=== PATIENT | male | born 1980 | race Two or more races ===

== ENCOUNTER 2019-05-14 18:51 | Inpatient (IN) | payer MEDICAID ==
[~2019-05-14] VITALS: Ht 185.4 cm; Wt 156.0 kg
[2019-05-15 02:15] VITALS: BP 137/78
[2019-05-15] MEDS: QUEtiapine FUMARATE 100 MG TABLET PO PRN (08:01)
[2019-05-15] MEDS: LORazepam 2 MG TABLET PO PRN (08:01)
[2019-05-15 16:00] VITALS: BP 125/69
[2019-05-15] MEDS: OLANZapine 10 MG TABLET PO SCH (20:36)
[2019-05-15] MEDS: VALPROIC ACID 250 MG CAPSULE PO SCH (20:36)
[2019-05-16] MEDS: LORazepam 2 MG TABLET PO PRN (08:26)
[2019-05-16] MEDS: VALPROIC ACID 250 MG CAPSULE PO SCH ×2 (08:27→20:24)
[2019-05-16] MEDS: QUEtiapine FUMARATE 100 MG TABLET PO PRN (08:27)
[2019-05-16 09:19] VITALS: BP 131/84
[2019-05-16 17:01] VITALS: BP 118/78
[2019-05-16] MEDS: OLANZapine 10 MG TABLET PO SCH (20:24)
[2019-05-17 05:25] VITALS: BP 124/83
[2019-05-17 08:29] VITALS: BP 131/82
[2019-05-17] MEDS: VALPROIC ACID 250 MG CAPSULE PO SCH ×2 (08:42→20:22)
[2019-05-17] MEDS ORDERED: ALBUTEROL SULFATE HFA 90 MCG/PUFF 8 GM INHALER IH PRN (14:30)
[2019-05-17] MEDS ORDERED: DOCUSATE SODIUM 100 MG CAPSULE PO PRN (14:30)
[2019-05-17] MEDS ORDERED: IBUPROFEN 400 MG TABLET PO PRN (14:30)
[2019-05-17] MEDS ORDERED: LOPERAMIDE HCL 2 MG CAPSULE PO PRN (14:30)
[2019-05-17] MEDS ORDERED: ACETAMINOPHEN 325 MG TABLET PO PRN (14:30)
[2019-05-17] MEDS ORDERED: CloNIDine HCL 0.1 MG TABLET PO PRN (14:30)
[2019-05-17] MEDS ORDERED: MAGNESIUM HYDROXIDE SUSPENSION 30 ML UDCUP PO PRN (14:30)
[2019-05-17] MEDS ORDERED: ONDANSETRON HCL 4 MG TABLET PO PRN (14:30)
[2019-05-17] MEDS ORDERED: PETROLATUM,WHITE 28 GM JELLY TP PRN (14:30)
[2019-05-17] MEDS ORDERED: NICOTINE 14 MG/24 HOUR PATCH TD PRN (14:30)
[2019-05-17] MEDS ORDERED: MAG HYDROX/AL HYDROX/SIMETH ES 30 ML SUSPENSION UDCUP PO PRN (14:30)
[2019-05-17] MEDS ORDERED: GuaiFENesin/D-METHORPHAN [SUGAR-FREE] 200-20MG/10 ML SYRUP UDCUP PO PRN (14:30)
[2019-05-17 16:00] VITALS: BP 115/76
[2019-05-17] MEDS: OLANZapine 10 MG TABLET PO SCH (20:22)
[2019-05-18 02:15] VITALS: BP 121/78
[2019-05-18 08:18] VITALS: BP 114/64
[2019-05-18] MEDS: VALPROIC ACID 250 MG CAPSULE PO SCH ×2 (08:50→20:33)
[2019-05-18] MEDS: LORazepam 2 MG TABLET PO PRN ×3 (08:50→20:33)
[2019-05-18] MEDS: QUEtiapine FUMARATE 100 MG TABLET PO PRN (16:07)
[2019-05-18 16:15] VITALS: BP 114/65
[2019-05-18] MEDS: OLANZapine 10 MG TABLET PO SCH (20:33)
[2019-05-19 08:21] VITALS: BP 128/68
[2019-05-19] MEDS: QUEtiapine FUMARATE 100 MG TABLET PO PRN (08:58)
[2019-05-19] MEDS: LORazepam 2 MG TABLET PO PRN ×2 (08:58→20:33)
[2019-05-19] MEDS: VALPROIC ACID 250 MG CAPSULE PO SCH ×2 (08:58→20:33)
[2019-05-19 16:37] VITALS: BP 124/67
[2019-05-19] MEDS: OLANZapine 10 MG TABLET PO SCH (20:33)
[2019-05-20 06:23] VITALS: BP 120/70
[2019-05-20 08:00] VITALS: BP 110/65
[2019-05-20] MEDS: VALPROIC ACID 250 MG CAPSULE PO SCH ×2 (09:41→20:12)
[2019-05-20] MEDS: OLANZapine 5 MG TABLET PO SCH (10:10)
[2019-05-20 16:00] VITALS: BP 103/62
[2019-05-20] MEDS: OLANZapine 10 MG TABLET PO SCH (20:12)
[2019-05-20] MEDS: LORazepam 2 MG TABLET PO PRN (20:13)
[2019-05-21 02:16] VITALS: BP 108/61
[2019-05-21 08:27] VITALS: BP 143/64
[2019-05-21] MEDS: OLANZapine 10 MG TABLET PO SCH ×2 (09:52→20:20)
[2019-05-21] MEDS: VALPROIC ACID 250 MG CAPSULE PO SCH ×2 (09:52→20:20)
[2019-05-21] MEDS: LORazepam 2 MG TABLET PO PRN (09:54)
[2019-05-21] MEDS: OLANZapine 5 MG TABLET PO SCH (09:56)
[2019-05-21 16:54] VITALS: BP 107/60
[2019-05-22] MEDS: VALPROIC ACID 250 MG CAPSULE PO SCH ×2 (09:33→20:45)
[2019-05-22] MEDS: LORazepam 2 MG TABLET PO PRN ×2 (09:34→20:45)
[2019-05-22] MEDS: OLANZapine 5 MG TABLET PO SCH (09:41)
[2019-05-22 10:38] VITALS: BP 110/67
[2019-05-22 16:00] VITALS: BP 117/74
[2019-05-22] MEDS: OLANZapine 10 MG TABLET PO SCH (20:45)
[2019-05-23 08:21] VITALS: BP 122/63
[2019-05-23] MEDS: VALPROIC ACID 250 MG CAPSULE PO SCH ×2 (09:15→20:32)
[2019-05-23] MEDS: OLANZapine 5 MG TABLET PO SCH (09:15)
[2019-05-23 16:00] VITALS: BP 118/73
[2019-05-23] MEDS: QUEtiapine FUMARATE 100 MG TABLET PO PRN (16:50)
[2019-05-23] MEDS: LORazepam 2 MG TABLET PO PRN ×2 (16:50→20:51)
[2019-05-23] MEDS: OLANZapine 10 MG TABLET PO SCH (20:32)
[2019-05-24 02:10] VITALS: BP 116/77
[2019-05-24] MEDS: VALPROIC ACID 250 MG CAPSULE PO SCH ×2 (08:33→20:46)
[2019-05-24] MEDS: OLANZapine 5 MG TABLET PO SCH (08:33)
[2019-05-24 08:35] VITALS: BP 112/80
[2019-05-24 16:00] VITALS: BP 110/66
[2019-05-24] MEDS: LORazepam 2 MG TABLET PO PRN ×2 (16:10→20:46)
[2019-05-24] MEDS: QUEtiapine FUMARATE 100 MG TABLET PO PRN (16:10)
[2019-05-24] MEDS: OLANZapine 10 MG TABLET PO SCH (20:46)
[2019-05-25 02:30] VITALS: BP 111/66
[2019-05-25] MEDS: OLANZapine 5 MG TABLET PO SCH (08:53)
[2019-05-25] MEDS: VALPROIC ACID 250 MG CAPSULE PO SCH ×2 (08:53→20:08)
[2019-05-25 12:21] VITALS: BP 103/52
[2019-05-25 16:00] VITALS: BP 107/68
[2019-05-25] MEDS: OLANZapine 10 MG TABLET PO SCH (20:08)
[2019-05-25] MEDS: LORazepam 2 MG TABLET PO PRN (20:08)
[2019-05-26 07:53] LABS: BASOPHILS % (AUTO) 0.2 % (0.0-2.0); EOSINOPHILS % (AUTO) 2.2 % (1.0-6.0); HEMATOCRIT 46.1 % (41-53); HEMOGLOBIN 15.8 g/dL (13.5-17.5); LYMPHOCYTES # (AUTO) 2.2 K/uL (1.0-4.8); LYMPHOCYTES % (AUTO) 22.7 % (22.0-44.0); MEAN CORPUSCULAR HEMOGLOBIN 29.7 pg (26.0-34.0); MEAN CORPUSCULAR HGB CONC 34.2 G/dL (31.0-37.0); MEAN CORPUSCULAR VOLUME 87 fL (80-100); MONOCYTES # (AUTO) 0.6 K/uL (0.1-1.0); MONOCYTES % (AUTO) 6.1 % (2.0-9.0); NEUTROPHILS # (AUTO) 6.8 K/uL (1.8-7.7); NEUTROPHILS % (AUTO) 68.8 % (40.0-70.0); PLATELET COUNT (AUTO) 237 K/uL (150-450); RED BLOOD CELL COUNT(AUTO) 5.32 MIL/uL (4.50-5.90); RED CELL DISTRIBUTION WIDTH 13.8 % (11.5-14.5)
[2019-05-26 08:11] VITALS: BP 116/63
[2019-05-26 08:56] LABS: ALANINE AMINOTRANSFERASE 21 U/L (12-78); ALBUMIN 3.1 g/dL (3.4-5.0); ALKALINE PHOSPHATASE 56 U/L (46-116); ANION GAP 7 mmol/L (8-16); ASPARTATE AMINOTRANSFERASE 14 U/L (15-37); BILIRUBIN,TOTAL 0.6 mg/dL (0.1-1.0); CARBON DIOXIDE 26 mmol/L (22-29); CHLORIDE 102 mmol/L (98-107); CHOL/HDL RATIO 4.6 (4.2-7.3); CHOLESTEROL 171 mg/dL (131-200); CREATININE 0.85 mg/dL (0.60-1.30); FREE T4 (FREE THYROXINE) 0.83 ng/dL (0.76-1.46); GLOMERULAR FILTR. RATE CALC > 60 mL/min (>60); GLUCOSE,RANDOM 88 mg/dL (70-110); HDL CHOLESTEROL 37 mg/dL (40-60); LDL CHOL (CALC.) 71 mg/dL (0-130); POTASSIUM 3.9 mmol/L (3.5-5.1); SODIUM SERUM 135 mmol/L (136-145); THYROID STIMULATING HORMONE 3.26 uIU/mL (0.36-3.74); TOTAL PROTEIN, SERUM 6.7 g/dL (6.4-8.2); TRIGLYCERIDES 314 mg/dL (15-150); UREA NITROGEN, BLOOD 16 mg/dL (7-18)
[2019-05-26] MEDS: VALPROIC ACID 250 MG CAPSULE PO SCH ×2 (08:59→20:51)
[2019-05-26] MEDS: OLANZapine 5 MG TABLET PO SCH (08:59)
[2019-05-26] MEDS: LORazepam 2 MG TABLET PO PRN ×2 (08:59→16:18)
[2019-05-26 16:00] VITALS: BP 114/66
[2019-05-26] MEDS: OLANZapine 10 MG TABLET PO SCH (20:51)
[2019-05-27] MEDS: OLANZapine 5 MG TABLET PO SCH (09:04)
[2019-05-27] MEDS: VALPROIC ACID 250 MG CAPSULE PO SCH (09:04)
[2019-05-27 09:10] VITALS: BP 128/70
[2019-05-27] MEDS ORDERED: VALP250 PO ×2 (09:33→09:54)
[2019-05-27] MEDS ORDERED: OLAN10TA20 PO (09:33)
[2019-05-27] MEDS ORDERED: OLAN5TAB27 PO (09:33)
[2019-05-27] MEDS ORDERED: OLAN10TA3 PO (09:54)
[2019-05-27] MEDS ORDERED: OLAN5TAB2 PO (09:54)
== END 2019-05-27 09:32 | disposition home or self-care (01) | DRG 753 ==
LOC: B3A 05-15 01:32
DX: F31.5 Bipolar disorder, current episode depressed, severe, with psychotic features (principal); R45.851 Suicidal ideations; Z68.42 Body mass index [BMI] 45.0-49.9, adult; F10.10 Alcohol abuse, uncomplicated; Y90.9 Presence of alcohol in blood, level not specified; F19.10 Other psychoactive substance abuse, uncomplicated; F41.9 Anxiety disorder, unspecified; Z79.899 Other long term (current) drug therapy
CPT/HCPCS: 84439; 84443